=== PATIENT | male | born 1995 | race Caucasian/White ===

== ENCOUNTER 2019-11-02 21:09 | Emergency (ER) | payer OTHER ==
--- NOTE | 2019-11-02 21:15 | PDOC ---
Rapid Medical Evaluation Time Seen by Provider: 11/02/19 21:11 Medical Evaluation: Allergies Allergy/AdvReac Type Severity Reaction Status Date / Time No Known Drug Allergies Allergy Verified 05/27/12 10:37 11/02/19 21:11 I performed a brief in-person evaluation of this patient. Hwealthy 24-year-old male hit in face with baseball (hit by another player, ricocheted off pole, hit him in the face) on Saturday. No LOC. No vision change. Pertinent physical exam findings: Ecchymosis under both eyes. PERRL, EOMI. Mild nasal swelling. I have ordered the following: None Patient to proceed to ED for further evaluation.
[2019-11-02 21:24] VITALS: BP 142/70; PULSE 82; TEMP 98.6; BMI 26.3
--- NOTE | 2019-11-02 22:44 | PDOC ---
History of Present Illness - General Chief Complaint: Injury Stated Complaint: INJURY Time Seen by Provider: 11/02/19 21:11 - History of Present Illness Initial Comments: 11/02/19 22:42 24-year-old male without comorbidities presents for evaluation of nasal pain after being struck in the face by a baseball 2 nights ago no loss of consciousness no headaches no post injury nausea vomiting or visual changes he does have some mild nasal discomfort without difficulty breathing Past History - Past Medical History Allergies/Adverse Reactions: Allergies Allergy/AdvReac Type Severity Reaction Status Date / Time No Known Drug Allergies Allergy Verified 11/02/19 21:11 Home Medications: Ambulatory Orders No Home Medications 05/27/12 Cyclobenzaprine HCl [Flexeril] 10 mg PO HS #3 tablet 05/28/12 Ketorolac Tromethamine [Toradol] 10 mg PO Q6H #0 tablet 05/28/12 Oxycodone HCl/Acetaminophen [Percocet 5/325] 1 combo PO PRN PRN #30 tablet 05/28 Anemia: No Asthma: Yes ( CHILD-STABLE NO MEDS) Cancer: No Cardiac Disorders: No CVA: No COPD: No CHF: No Dementia: No Diabetes: No GI Disorders: No Disorders: No HTN: No Hypercholesterolemia: No Liver Disease: No Seizures: No Thyroid Disease: No - Psycho Social/Smoking Cessation Hx Smoking History: Never smoked Have you smoked in the past 12 months: No Hx Alcohol Use: Yes (social) Drug/Substance Use Hx: Yes (marijuana) Substance Use Type: None Hx Substance Use Treatment: No Review of Systems - Review of Systems HEENTM: Yes: Nose Pain *Physical Exam - Vital Signs Last Vital Signs Temp Pulse Resp BP Pulse Ox 98.6 F 82 18 142/70 98 11/02/19 21:11 11/02/19 21:11 11/02/19 21:11 11/02/19 21:11 11/02/19 21:11 - Physical Exam 11/02/19 22:43 GENERAL: The patient is awake, alert, and fully oriented, in no acute distress. HEAD: Normal bilateral periorbital ecchymosis EYES: sclera anicteric, conjunctiva clear. ENT: Ears normal tympanic membranes normal oropharynx clear uvula midline; mild tenderness about the nasal bones NECK: Normal range of motion LUNGS: Breath sounds equal, clear to auscultation bilaterally. No wheezes, and no crackles. HEART: S1 and S2 without murmur, rub or gallop. ABDOMEN: Soft, nontender, normoactive bowel sounds. No guarding, no rebound. No masses. EXTREMITIES: Normal range of motion, no edema. No clubbing or cyanosis. No cords, erythema, or tenderness. NEUROLOGICAL: Cranial nerves II through XII grossly intact. PSYCH: Normal mood, normal affect. SKIN: Warm, Dry, normal turgor, no rashes or lesions noted. ED Treatment Course - RADIOLOGY Radiology Studies Ordered: Category Date Time Status FACIAL BONES CT W/O CONTRAST [CT] Stat CT Scan 11/02/19 21:32 Taken Medical Decision Making - Medical Decision Making 11/02/19 22:57 Nasal bone fracture at the tip follow-up with ENT no emergent intervention necessary at this time. Discharge - Discharge Information Problems reviewed: Yes Clinical Impression/Diagnosis: Nasal bone fracture Condition: Stable Disposition: HOME - Admission No - Follow up/Referral Referrals: Sharon Colby MD [Primary Care Provider] - Zane Palomares MD [Staff Physician] - - Patient Discharge Instructions Additional Instructions: Tylenol and Motrin as directed for pain. Return to the emergency room for worsening symptoms and without fail follow-up with ear nose and throat doctor in 1 to 2 days for further evaluation and treatment options. There is a small nasal bone fracture. - Post Discharge Activity
== END 2019-11-02 23:00 | disposition home or self-care (01) ==
LOC: JER 21:09
DX: S02.2XXA Fracture of nasal bones, initial encounter for closed fracture (principal); W21.03XA Struck by baseball, initial encounter; Y93.89 Activity, other specified; Y92.89 Other specified places as the place of occurrence of the external cause; Y99.0 Civilian activity done for income or pay
CPT/HCPCS: 70486-TC; 99284-25